=== PATIENT | female | born 1970 | race Caucasian/White ===

== ENCOUNTER → 2018-03-24 | Outpatient (CLI) | payer OTHER ==
--- NOTE | 2018-03-24 14:49 | PCVCIMAG ---
APPROVED REPORT Study performed: 03/24/2018 10:49:18 EXAM: Comprehensive 2D, Doppler, and color-flow Echocardiogram Patient Location: Echo lab Status: routine BSA: 1.85 HR: 70 bpmBP: 134/90 mmHg Rhythm: NSR Other Information Study Quality: Adequate Risk Factors: Cardiac Risk Factors: HTN Indications Chest Pain 2D Dimensions IVSd: 13.09 (7-11mm) LVDd: 40.36 mm PWd: 12.12 (7-11mm)Ascending Ao: 35.02 (22-36mm) LVDs: 32.12 (25-40mm) Left Atrium: 38.59 (27-40mm) Aortic Root: 29.97 mm LV Single Plane 4CH: 55.59 % LV Single Plane 2CH: 67.76 % Biplane EF: 61.6 % Volumes Left Atrial Volume (Systole) Single Plane 4CH: 70.56 mLSingle Plane 2CH: 67.33 mL LA ESV Index: 39.00 mL/m2 Aortic Valve AoV Peak Glenn.: 1.44 m/s AO Peak Gr.: 8.25 mmHgLVOT Max P.72 mmHg LVOT Max V: 1.09 m/s Mitral Valve E/A Ratio: 0.8 MV Decel. Time: 290.68 ms MV E Max Glenn.: 0.58 m/s MV A Glenn.: 0.73 m/s IVRT: 110.73 ms Pulmonary Valve PV Peak Glenn.: 1.05 m/sPV Peak Gr.: 4.38 mmHg Pulmonary Vein P Vein S: 0.25 m/sP Vein A: 0.30 m/s P Vein D: 0.35 m/sP Vein A Dur.: 138.4 msec P Vein S/D Ratio: 0.71 Tricuspid Valve TR Peak Glenn.: 2.42 m/s TR Peak Gr.: 23.47 mmHg Left Ventricle The left ventricle is normal size. There is normal LV segmental wall motion. Mild concentric left ventricular hypertrophy. Left ventricular systolic function is normal. The left ventricular ejection fraction is within the normal range. LVEF is 60-65%. Grade I - abnormal relaxation pattern. Right Ventricle The right ventricle is normal size. The right ventricular systolic function is normal. Atria Left atrium is mildly dilated. The right atrium size is normal. Aortic Valve The aortic valve is normal in structure. No aortic regurgitation is present. There is no aortic valvular stenosis. Mitral Valve The mitral valve is normal in structure. There is no mitral valve regurgitation noted. No evidence of mitral valve stenosis. Tricuspid Valve The tricuspid valve is normal in structure. Mild tricuspid regurgitation with PAP of 30 mmHg. Pulmonic Valve The pulmonary valve is normal in structure. There is no pulmonic valvular regurgitation. Great Vessels The aortic root is normal in size. IVC is normal in size and collapses >50% with inspiration. Pericardium There is no pericardial effusion. There is no pleural effusion. <Conclusion> The left ventricle is normal size. LVEF is 60-65%. Left atrium is mildly dilated. The aortic valve is normal in structure. The mitral valve is normal in structure. The tricuspid valve is normal in structure. The pulmonary valve is normal in structure. The aortic root is normal in size. There is no pericardial effusion.
== END | disposition home or self-care (01) ==
LOC: PCVCIMAG 11:42
PROVIDERS: ATTEND Internal Medicine
DX: R07.9 Chest pain, unspecified (principal); I10 Essential (primary) hypertension
CPT/HCPCS: 93306

== ENCOUNTER → 2018-04-15 | Outpatient (CLI) | payer OTHER ==
--- NOTE | 2018-04-16 09:15 | PCVCIMAG ---
APPROVED REPORT Study performed: 04/15/2018 14:10:48 Exam: Stress Echocardiogram Indication: Hyperlipidemia, Hypertension Patient Location: Echo lab Stress Nurse: Coleen Horn RN Status: routine Ht: 5 ft 4 in HR: 70 bpm BP: 136/90 mmHg Rhythm: NSR Medical History Medical History: Hyperlipidemia, HTN Procedure The patient underwent an Exercise Stress Test using the Jean-Pierre Protocol. Blood pressure, heart rate, and EKG were monitored. An Echocardiogram was performed by instrumentation and controls technician in four stages in quad fashion. At peak stress, four selected images were obtained and placed side by side with resting images for comparison. Stress Test Details Stress Test: Exercise stress testing was performed using a Jean-Pierre protocol. HR Resting HR: 70 bpmMax Heart Rate (APMHR): 172 bpm Max HR Achieved: 162 bpmTarget HR (85% APMHR): 146 bpm % of APMHR: 94 Recovery HR: 76 bpm HR response to stress: Normal HR response to stress BP Resting BP: 136/90 mmHg Max BP: 150/84 mmHg Recovery BP: 120/80 mmHg BP response to stress: Normal blood pressure response to stress. ECG Resting ECG: Sinus Rhythm Stress ECG: Sinus Rhythm Recovery ECG: Sinus Rhythm Clinical Reason for Termination: Maximal effort Exercise duration: 9 min 46 sec Highest Stage Achieved: Stage 3: 3.4 mph at 14% grade. Exercise capacity: 12.50 METs Overall Exercise Capacity for Age: Normal Stress ECG Conclusion 1. Subjectively negative for ischemia 2. Elective cardiographic C negative for ischemia 3. Satisfactory functional capacity Pre-Stress Echo The resting Echocardiogram showed normal left ventricular contractility with an estimated Ejection Fraction of about 55-60%. Normal wall motion in all segments on baseline images. Post-Stress Echo The stress Echocardiogram showed normal left ventricular contractility with an estimated Ejection Fraction of about %. Normal augmentation of wall motion in all segments on post stress images. Clinical No clinical or ECG evidence for ischemia. Conclusion Clinical Response: Non-ischemic Exercise Capacity: Average Stress ECG Response: Non-ischemic Stress Echo Images: Non-ischemic The left ventricle is normal in size and wall thickness in both the rest and stress images. 1. Low risk study Other Information Study Quality: GoodGood <Conclusion> The left ventricle is normal in size and wall thickness in both the rest and stress images. 1. Low risk study
== END | disposition home or self-care (01) ==
LOC: PCVCIMAG 14:29
PROVIDERS: ATTEND Internal Medicine
DX: I10 Essential (primary) hypertension (principal); R07.9 Chest pain, unspecified; E78.5 Hyperlipidemia, unspecified
CPT/HCPCS: 93325; 93351